=== PATIENT | male | born 1975 | race Caucasian/White ===

== ENCOUNTER 2024-11-19 03:23 | Day surgery (SDC) | payer MEDICAID ==
[2024-11-19 04:28] LABS: BASOPHILS ABSOLUTE AUTO 0.08 K/uL (0.00-0.10); BASOPHILS PERCENT AUTO 0.7 % (0.1-1.3); EOSINOPHILS ABSOLUTE AUTO 0.22 K/uL (0.00-0.40); EOSINOPHILS PERCENT AUTO 1.9 % (0.0-5.4); HEMATOCRIT 43.7 % (38.4-49.7); HEMOGLOBIN 15.2 g/dL (12.9-16.9); IMMATURE GRAN ABSOLUTE AUTO 0.03 K/uL (0.00-0.23); IMMATURE GRAN PERCENT AUTO 0.3 % (0.0-0.7); LYMPHOCYTES PERCENT AUTO 21.9 % (11.4-47.7); MEAN CORPUSCULAR HEMOGLOBIN 31.3 pg (31.6-35.5); MEAN CORPUSCULAR HGB CONC 34.8 g/dL (31.6-35.5); MEAN CORPUSCULAR VOLUME 89.9 fL (81.4-99.0); MONOCYTES ABSOLUTE AUTO 0.99 K/uL (0.20-0.90); MONOCYTES PERCENT AUTO 8.7 % (3.3-12.6); NEUTROPHILS ABSOLUTE AUTO 7.58 K/uL (1.0-7.6); NEUTROPHILS PERCENT AUTO 66.5 % (40.0-78.1); PLATELET COUNT,PLT 230 K/uL (130-375); RED BLOOD CELL COUNT 4.86 M/uL (4.14-5.76); WHITE BLOOD CELL COUNT,WBC 11.4 K/uL (3.2-11.0)
[2024-11-19] MEDS: Ketorolac 15 MG/ML SDV IVPUSH ONE (04:30)
[2024-11-19] MEDS: Ondansetron 4 MG/2 ML SDV IVPUSH ONE (04:30)
[2024-11-19 04:49] LABS: A/G RATIO 0.6 (1.2-2.2); ALANINE AMINOTRANSFERASE,ALT 30 U/L (12-78); ALBUMIN 3.6 g/dL (3.4-5.0); ALKALINE PHOSPHATASE 94 U/L (46-116); ASPARTATE AMNIOTRANSFERASE,AST 21 U/L (15-37); BILIRUBIN TOTAL 0.4 mg/dL (0.2-1.0); BLOOD UREA NITROGEN,BUN 19 mg/dL (7-18); CALCIUM 9.3 mg/dL (8.5-10.1); CARBON DIOXIDE,CO2 22 mmol/L (21-32); CHLORIDE,CL 102 mmol/L (100-108); CREATININE 1.3 mg/dL (0.8-1.3); EST CRCL DRUG DOSING (CG) 76.83 mL/min; ESTIMATED GFR 67 mL/min (>60); GLUCOSE RANDOM 103 mg/dL (74-106); PROTEIN TOTAL,TP 9.6 g/dL (6.4-8.2); SODIUM,NA 136 mmol/L (140-148)
[2024-11-19 05:01] LABS: APPEARANCE,URINE CLEAR (CLEAR); BILIRUBIN,URINE NEGATIVE (NEGATIVE); COLOR,URINE YELLOW (YELLOW); GLUCOSE,URINE NEGATIVE (NEGATIVE); KETONES,URINE NEGATIVE (NEGATIVE); LEUKOCYTE ESTERASE,URINE NEGATIVE (NEGATIVE); NITRITE,URINE NEGATIVE (NEGATIVE); OCCULT BLOOD,URINE MODERATE (NEGATIVE); PH,URINE 5.5 (5.0-8.0); PROTEIN,URINE NEGATIVE (NEGATIVE); UROBILINOGEN,URINE 0.2 EU/dL (0.2-1.0)
[2024-11-19] MEDS: Sodium Chloride 0.9% 1,000 ML IV SCH (05:02)
[2024-11-19 05:18] LABS: AMORPHOUS SEDIMENT,URINE NOT SEEN; BACTERIA,URINE FEW; EPITHELIAL CELLS,URINE RARE; MUCUS,URINE NOT SEEN; RBC,URINE 0-5 (0-5); WBC,URINE 0-5 (0-5)
[2024-11-19] MEDS ORDERED: fentaNYL 250 MCG/5 ML SDV ONE (09:29)
[2024-11-19] MEDS ORDERED: Dexamethasone 4 MG/ML SDV ONE (09:30)
[2024-11-19] MEDS ORDERED: Neostigmine Methylsulfate 10 MG/10 ML MDV ONE (09:30)
[2024-11-19] MEDS ORDERED: Ondansetron 4 MG/2 ML SDV ONE (09:30)
[2024-11-19] MEDS ORDERED: Rocuronium 50 MG/5 ML Vial ONE (09:30)
[2024-11-19] MEDS ORDERED: Succinylcholine 200 MG/10 ML MDV ONE (09:30)
[2024-11-19] MEDS ORDERED: Propofol 200 MG/20 ML SDV ONE (09:30)
[2024-11-19] MEDS ORDERED: Glycopyrrolate 0.2 MG/ML 5 ML MDV ONE (09:30)
[2024-11-19] MEDS: Piperacillin/Tazobactam/Dext 4.5 GM in Premix Bag 1 BAG IV ONE (09:50)
[2024-11-19] MEDS ORDERED: Lactated Ringers 1,000 ML ONE (10:07)
[2024-11-19] MEDS ORDERED: fentaNYL 100 MCG/2 ML SDV ONE (10:20)
[2024-11-19] MEDS: Bupivacaine 0.25%/EPINEPHrine 1:200,000 30 ML SDV ONE (10:30)
== END 2024-11-19 13:23 | disposition home or self-care (01) ==
LOC: JP.ED 03:23 → JP.SDS 09:25
PROVIDERS: ATTEND Surgery
DX: K35.33 Acute appendicitis with perforation, localized peritonitis, and gangrene, with abscess (principal); E03.9 Hypothyroidism, unspecified; Z21 Asymptomatic human immunodeficiency virus [HIV] infection status; Z79.890 Hormone replacement therapy; Z79.899 Other long term (current) drug therapy
CPT/HCPCS: 00840-QZ; 36415; 74176; 80053; 81001; 85025; 96361; 96374; 96375; 99284; 99285-25; J0330; J1100; J1596; J1885; J2405; J2543; J2704; J2710; J3010; J3490; J7030; J7120